=== PATIENT | female | born 1990 | race Caucasian/White ===

== ENCOUNTER 2016-11-29 18:20 | Emergency (ER) | payer OTHER | END 2016-11-29 19:02 | disposition left against medical advice (07) | LOC: ER1 18:20 | DX: Z53.21 Procedure and treatment not carried out due to patient leaving prior to being seen by health care provider (principal) ==

== ENCOUNTER 2020-10-29 10:02 | Emergency (ER) | payer OTHER | END 2020-10-29 15:30 | disposition home or self-care (01) | LOC: ER1 10:02 | DX: R42 Dizziness and giddiness (principal); Z88.1 Allergy status to other antibiotic agents | CPT/HCPCS: 70553; 99284; A9577 ==